=== PATIENT | female | born 1985 | race Caucasian/White ===

== ENCOUNTER 2019-08-06 05:00 | Inpatient (IN) | payer MEDICAID, SELFPAY ==
[2019-08-06] VITALS (19 sets, daily range): BP systolic 106–133; BP diastolic 54–97; PULSE 64–96; RESP 14–19; TEMP 36.6–37.7; O2SAT 95–99; BMI 36.9
[2019-08-06] MEDS: Lactated Ringers 1,000 ML 999 ML IV (05:55)
[2019-08-06 06:08] LABS: Absolute Lymphocyte Count 1.69 X10^3/uL (0.83-4.51); Absolute Neutrophil Count 6.7 X10^3/uL (2.0-7.7); Basophil# 0.02 X10^3/uL; Basophil% 0.2 % (0-1); Eosinophil# 0.06 X10^3/uL; Eosinophils% 0.7 % (0-5); Hematocrit 35.8 % (37-47); Hemoglobin 11.9 g/dL (12.0-15.0); Lymphocyte # 1.69 X10^3/ul (4.0); Lymphocyte % 18.7 % (19-41); Mean Corp Hgb Conc 33.2 g/dL (32-36); Mean Corpuscular Hgb 30.3 pg (27.0-32.0); Mean Corpuscular Volume 91.1 fL (81-99); Mean Platelet Vol. 12.9 fl (6.2-12.0); Monocyte% 5.5 % (0-10); NRBC Flagged by Analyzer 0 % (0-5); Neutrophil # 6.69 X10^3/uL (2.7-7.7); Neutrophil % 74.1 % (47-70); Platelet Count 117 K/mm3 (150-450); RBC Distribution Width CV 13.2 % (11.6-14.6); RBC Distribution Width SD 43.6 fl (35.1-43.9); Red Blood Count 3.93 M/mm3 (4.2-5.4)
[2019-08-06] MEDS: Lactated Ringers 1,000 ML 150 ML IV (07:00)
[2019-08-06] MEDS: Sodium Citrate/Citric Acid 30 ML UDC PO (07:08)
[2019-08-06] MEDS: Cefazolin 2 GM in 0.9% Normal Saline 100 ML IV (07:26)
--- NOTE | 2019-08-06 07:42 | PCM.HP.BLA ---
History and Physical Date of Admission: 08/06/19 Pre-Op History and Physical ? HPI: The patient is a 34 year old female presenting for pre-operative visit. She is scheduled for? section with bilateral salpingectomy or tubal sterilization, for?history of previous section and sterilization on?08/06/19. ??Procedure discussed along with risks, benefits and complications. ?Other alternatives discussed for management. Consent form signed??Yes.? PAST MEDICAL HISTORY PAST MEDICAL HISTORY Diagnosis Date ? Hypertension ? ? ? PAST SURGICAL HISTORY PAST SURGICAL HISTORY Procedure Laterality Date ? SECTION HX ? 2017 ? TOOTH EXTRACTION ? 2004 ? wisdom teeth removed ? ? CURRENT MEDICATIONS Current Outpatient Medications Medication Sig Dispense Refill ? Breast Pump Use as directed 1 Each 0 ? aspirin, enteric coated (ASPIRIN, ENTERIC COATED) 81 mg EC tablet Take 1 tablet by mouth once daily. 30 tablet 6 ? no122/iron/folic acid ( MULTI ORAL) Take by mouth once daily. ? ? ? Kckzqidn-Pb-Rbr-Fe-FA tab Take 1 tablet by mouth once daily. 30 tablet 5 ? No current facility-administered medications for this visit.? ? ALLERGIES:?Patient has no known allergies. ? PERSONAL HISTORY:? SOCIAL HISTORY Social History ? Tobacco Use ? Smoking status: Former Smoker ? ? Years: 5.00 ? ? Last attempt to quit: 03/27/2015 ? ? Years since quittin.3 ? Smokeless tobacco: Never Used Substance Use Topics ? Alcohol use: No ? Drug use: No ? FAMILY HISTORY:? FAMILY HISTORY FAMILY HISTORY Problem Relation Age of Onset ? Cancer Paternal Grandfather ? ? Cancer Father ? ? Hypertension Father ? ? Cancer Mother ? ? Hypertension Mother ? ? No Known Problems Sister ? ? Cancer Maternal Grandfather ?Lung ? Cancer Paternal Grandmother ? ? No Known Problems Sister ? ? No Known Problems Daughter ? ? No Known Problems Son ? ? No Known Problems Son ? ? REVIEW OF SYMPTOMS: GENERAL: denies fevers or chills ENDOCRINOLOGY: has not been on steroids Cardiology : denies palpitations or chest pain Respiratory: denies SOB or cough Hematology: denies history of prolonged bleeding or easy bruising or VTE Allergy: Denies history of personal or family history of allergy to anesthesia ? ? PHYSICAL EXAMINATION: ? VITALS:?Last menstrual period 11/06/2018, unknown if currently . ? GENERAL:??The patient is well nourished, well hydrated in no acute distress. ?, The patient is oriented to time, place, and person. NECK:?Supple. No lynphadenopathy, normal thyroid, no thyromegaly. LUNGS:?Clear to auscultation bilaterally. no wheezes, rhonchi or rales HEART:?Regular rate and rhythm, Normal heart sounds and No murmurs or gallops Abdomen: Soft nontender, gravid, appropriate for gestational age ? IMPRESSION:?34-year-old 4 para 3 with history of previous section, desires repeat, and sterilization request.??EDC 08/13/19. ? PLAN:???The risks/benefits/alternatives and personal involved for the planned? section and bilateral salpingectomy or tubal sterilization?were reviewed with the patient. Her questions were answered to her satisfaction and she desires to proceed. ?Consent was signed. ?I reviewed with her postop instructions and expectations. ? ? I have reviewed and updated past medical and surgical history, medications and allergies?
--- NOTE | 2019-08-06 07:55 | FALS_PTH ---
PATIENT: JAZMIN TOLBERT LOC: [facility] U#:[id number] AGE/SX: 34/F ROOM: WP004 RE08/06/[address]: Dr. Henna Roberts MD : [id number] BED: 1 DIS: 08/08/2019 SPEC #: [id number] RECD: 08/06/19 10:24 STATUS: GIOVANNI JULIANA #: [id number] ANA MARÍA: 08/06/19 07:[address]: Henna Roberts DEPT: SURGICAL PATHOLOGY RECD BY: [place] ENTERED: 08/06/19 12:37 SP TYPE: FALL TUBES OTHR DR: No Primary Care Phys Tissues: Fallopian tube Procedures: Surgery Specimen Level II Surgery Specimen Level III HEADER OPERATION: Tubal ligation PRE-OP DIAGNOSIS: Sterilization TISSUE SUBMITTED: Fallopian tubes, suture in right tube MICROSCOPIC DIAGNOSIS Right and left fallopian tubes, salpingectomies: Benign paratubal cysts. Complete cross-sections of fallopian tubes. AM:cristy 08/07/19 MICROSCOPIC DESCRIPTION Slides are reviewed. GROSS DESCRIPTION Received is one container labeled with the patient's name and designated bilateral fallopian tubes, stitch in right. The specimen consists of bilateral fallopian tubes including fimbrial ends. The right tube measures 6 cm in length and 0.6 cm in diameter and left tube measures 6 cm in length and 0.5 cm in diameter. Sections do not reveal any mass lesion. Sections reveal unremarkable cut surfaces. 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 / SJ:cristy 08/06/19 TC:5 CPT: 39655, 88481
[2019-08-06] MEDS: Oxytocin 30 units/NS 500 ml 30 UNITS/500 ML IV.SOLN 167 UNITS IV (08:00)
[2019-08-06] MEDS: Ondansetron 4 MG/2 ML Vial IV (08:00)
--- NOTE | 2019-08-06 08:28 | PCM.OPRPT ---
Delivery Classification: Scheduled Final SHILPA: 08/13/19 Final SHILPA Source: US <20 weeks Gestational age: 39 Weeks and 0 Days security systems administrator: Jaimie Quintanilla Type of Anesthesia:: Spinal Special Medications: none Implants Used: none Date of Procedure: 08/06/19 Pre-Operative Diagnosis: 39 week , previous c/s, desires sterilization Post-Operative Diagnosis: same Indications for : Repeat Elective , Desires elective sterilization Description of Procedure: The patient was taken to the operating room. She was prepped and draped in the dorsal supine position with a leftward tilt. A Pfannenstiel skin incision was made approximately 2 cm above the symphysis pubis and carried through to underlying layer fascia with the scalpel. The fascia was incised incised in the midline and extended laterally with the Mancera scissors. The fascia was dissected off the rectus muscles with blunt and sharp dissection. The rectus muscles were in the midline and the peritoneum was entered bluntly. The peritoneal incision was stretched and the bladder blade was placed. The uterine incision was made in a low transverse fashion with the scalpel and extended superiorly and inferiorly with blunt dissection. The amniotic membranes were ruptured bluntly and clear amniotic fluid returned. The 's head was brought to the incision in the flexed position and delivered without difficulty. The remainder of the infant was delivered with gentle traction and fundal pressure in the standard fashion. The mouth and nares were bulb suctioned. The cord was clamped and cut as the infant was stimulated. Cord clamping was delayed. The was handed off to the waiting nursing staff. The placenta was delivered with fundal massage and gentle traction in the standard fashion. The uterus was exteriorized and cleared of all clots and debris. The cervix was dilated with a ring forcep. The uterine incision was closed with #1 Vicryl in a running locked fashion. The incision was examined and was found to be hemostatic. The uterus was placed back into the peritoneal cavity and hemostasis was again confirmed. The right fallopian tube was identified and grasped with a Yuki clamp and held up. The LigaSure device was used to clamp, seal and transect the antimesenteric portion of the tube to the cornual insertion of the tube. The tube was clamped across with the LigaSure, sealed and transected with the LigaSure device. Hemostasis of the pedicles was noted. The same procedure was performed on the contralateral side. The uterine incision was again examined and found to be hemostatic. The rectus muscles were examined and any bleeding was Bovie cauterized. The parietal peritoneum and rectus muscles were closed en bloc with an 0 Vicryl running suture. The surgical teams outer gloves were then changed. The rectus fascia was examined and any bleeding was Bovie cauterized and the rectus fascia was closed with 0 PDS suture in a running standard fashion. The subcutaneous tissue was examining and any bleeding was Bovie cauterized. The subcutaneous tissue was reapproximated with 3-0 Vicryl suture. The skin was closed in a subcuticular fashion by the ENROLLED NURSE with me present in the labor and delivery suite. I performed the remainder of the procedure with assistance. All sponge, lap, and needle counts were correct. The patient was taken to her room for recovery in a stable condition. Amniotic Membrane Rupture Type: Artificial Amniotic Fluid Description: Clear Placenta Disposition: [facility] Specimen(s) sent to pathology: Bilateral fallopian tubes Drain: Mccullough to straight drain Fluids Replaced: 1000 Cord Entanglement: None Cord Vessel Description: 3 Vessels Esitmated Blood Loss (ml): 600 Infant Gender: Male Delayed cord clamping: Yes Antibiotic Given: Ancef 2 grams IV x1 Complications: None - Admit VTE Documentation VTE Present on Admission: No VTE Pharm Prophylaxis ordered?: Yes Reason prophylaxis not ordered:: Treatment Not Indicated
[2019-08-06] MEDS: Methylergonovine 0.2 MG/ML Ampul IM (09:42)
[2019-08-06] MEDS: Lactated Ringers 1,000 ML 100 ML IV (10:37)
[2019-08-06] MEDS: Acetaminophen 500 MG Tablet 1000 MG PO (11:48)
[2019-08-06] MEDS: Ketorolac 30 MG/ML Syringe IV ×2 (13:22→20:03)
[2019-08-06] MEDS: 0.9% Saline Lock 10 ML Syringe IV (20:03)
[2019-08-07 00:48] VITALS: BP 121/75; PULSE 59; RESP 16; TEMP 37.1; O2SAT 95
[2019-08-07] MEDS: 0.9% Saline Lock 10 ML Syringe IV ×4 (02:17→19:44)
[2019-08-07] MEDS: Ketorolac 30 MG/ML Syringe IV ×4 (02:18→19:43)
[2019-08-07 03:48] VITALS: BP 123/67; PULSE 59; RESP 16; TEMP 37.1; O2SAT 94
[2019-08-07 04:09] LABS: Hematocrit 30.3 % (37-47); Hemoglobin 10.2 g/dL (12.0-15.0); Mean Corp Hgb Conc 33.7 g/dL (32-36); Mean Corpuscular Hgb 30.9 pg (27.0-32.0); Mean Corpuscular Volume 91.8 fL (81-99); Platelet Count 107 K/mm3 (150-450); RBC Distribution Width CV 13.2 % (11.6-14.6); RBC Distribution Width SD 43.9 fl (35.1-43.9); White Blood Count 9.3 K/mm3 (4.4-11.0)
--- NOTE | 2019-08-07 05:30 | NURSING ---
Report received from Lay TIMMONS, taking over pt and care at this time.
[2019-08-07 08:45] VITALS: BP 126/81; PULSE 68; RESP 14; TEMP 36.7; O2SAT 98
[2019-08-07 13:56] VITALS: BP 129/81; PULSE 79; RESP 12; TEMP 36.8
[2019-08-07 13:57] LABS: Pathology Specimen OB SEE PATHOLOGY REPORT
--- NOTE | 2019-08-07 15:36 | PCM.PN.OB ---
Subjective: Pain well controlled. Average lochia. Tolerating regular diet. Has been up to urinate. - Physical Exam Vitals/I&O's: Vital Signs Temp Pulse Resp BP Pulse Ox 98.3 F 79 12 129/81 H 98 08/07/19 13:56 08/07/19 13:56 08/07/19 13:56 08/07/19 13:56 08/07/19 08:45 Oxygen Delivery Method Room Air Weight: 97.704 kg Body Mass Index (BMI) 36.9 Intake and Output for Last 24 Hours 08/05/19 08/06/19 08/07/19 23:59 23:59 23:59 Intake Total 2530.31 / 2530.31 Output Total 2180 / 2180 600 / 600 Balance 350.31 / 350.31 -600 / -600 General: Alert, Cooperative, No apparent distress Abdomen: Soft, Distended - Mildly, softly, Tender - Appropriately Skin: Incision - Bandage is clean dry and intact Laboratory Results 08/07/19 03:55: WBC 9.3, RBC 3.30 L, Hgb 10.2 L, Hct 30.3 L, MCV 91.8, MCH 30.9, MCHC 33.7, RDW Std Deviation 43.9, RDW Coeff of Jeff 13.2, Plt Count 107 L, MPV 13.0 H Current Medications Acetaminophen (Tylenol) 1,000 mg PO Q8H PRN PRN Reason: Pain Score 1-3/10 Last Admin: 08/06/19 11:48 Dose: 1,000 mg Documented by: Bisacodyl (Dulcolax) 10 mg RECTAL UD PRN PRN Reason: If no BM Hydrocortisone (Hytone) 1 applic TOPICAL TID PRN PRN; Protocol PRN Reason: Discomfort Naloxone HCl 4 mg/ Dextrose 504 mls @ 0 mls/hr IV .Q0M PRN; Protocol PRN Reason: Respiratory depression Ketorolac Tromethamine (Toradol (Bkc)) 30 mg IV Q6H BEKA Stop: 08/08/19 08:01 Last Admin: 08/07/19 13:57 Dose: 30 mg Documented by: Methylergonovine Maleate (Methergine) 0.2 mg IM X1 PRN PRN Reason: Uterine Atony Last Admin: 08/06/19 09:42 Dose: 0.2 mg Documented by: Naloxone HCl (Narcan) 0.02 mg IV Q1M PRN PRN Reason: RR <10 and pt unresponsive Naproxen (Naprosyn) 250 - 500 mg PO Q8H PRN PRN PRN Reason: Pain Score 1-3/10 Ondansetron HCl (Zofran) 4 mg IV Q4H PRN PRN PRN Reason: Nausea Last Admin: 08/06/19 08:00 Dose: 4 mg Documented by: Oxycodone HCl (Oxyir) 5 - 10 mg PO Q4H PRN PRN PRN Reason: Pain Score 4-10/10 Prochlorperazine Edisylate (Compazine Iv) 10 mg IV Q6H PRN PRN PRN Reason: NAUSEA Senna/Docusate Sodium (Senokot-S, Yumiko-Colace) 0 tablet PO DAILY PRN PRN Reason: Constipation Simethicone (Mylicon) 80 mg PO PCHS PRN PRN Reason: Indigestion/stomach pain Last Admin: 08/07/19 01:05 Dose: 80 mg Documented by: Sodium Chloride () 5 - 15 ml IV UD PRN PRN Reason: SALINE FLUSH Last Admin: 08/07/19 13:57 Dose: 10 ml Documented by: Medical Necessity - Tobacco Use Smoking Status: Former smoker Assessment/Plan Postoperative day #1 status post repeat section and bilateral salpingectomy Patient is doing well. Routine care. Will discharge home tomorrow.
[2019-08-07 19:40] VITALS: BP 135/76; PULSE 77; RESP 16; TEMP 36.5; O2SAT 96
[2019-08-08 02:20] VITALS: BP 123/74; PULSE 66; RESP 16; TEMP 36.4; O2SAT 96
[2019-08-08] MEDS: Ketorolac 30 MG/ML Syringe IV ×2 (02:22→07:37)
[2019-08-08] MEDS: 0.9% Saline Lock 10 ML Syringe IV ×2 (02:23→07:38)
[2019-08-08 07:35] VITALS: BP 122/74; PULSE 64; RESP 16; TEMP 36.7; O2SAT 99
[2019-08-08] MEDS: Senna/Docusate Sodium 1 Tablet PO (07:42)
--- NOTE | 2019-08-08 08:32 | PCM.PN.OB ---
Subjective: pain well controlled, average lochia. + flatus, no Bm. desires d/c home - Physical Exam Vitals/I&O's: Vital Signs Temp Pulse Resp BP Pulse Ox 98.1 F 64 16 122/74 H 99 08/08/19 07:35 08/08/19 07:35 08/08/19 07:35 08/08/19 07:35 08/08/19 07:35 Oxygen Delivery Method Room Air Weight: 97.704 kg Body Mass Index (BMI) 36.9 Intake and Output for Last 24 Hours 08/06/19 08/07/19 08/08/19 23:59 23:59 23:59 Intake Total 2530.31 / 2530.31 Output Total 2180 / 2180 600 / 600 Balance 350.31 / 350.31 -600 / -600 General: Alert, Cooperative, No apparent distress Abdomen: Soft, Distended - mildly, softly, Tender - appropriately Extremities: Edema - 1+ Skin: Incision - bandage clean, dry and intact. there is some contact dermatitis rash on skin superior to incision and above and under bandage. no calor, no evidence of infection Current Medications Acetaminophen (Tylenol) 1,000 mg PO Q8H PRN PRN Reason: Pain Score 1-3/10 Last Admin: 08/06/19 11:48 Dose: 1,000 mg Documented by: Bisacodyl (Dulcolax) 10 mg RECTAL UD PRN PRN Reason: If no BM Hydrocortisone (Hytone) 1 applic TOPICAL TID PRN PRN; Protocol PRN Reason: Discomfort Naloxone HCl 4 mg/ Dextrose 504 mls @ 0 mls/hr IV .Q0M PRN; Protocol PRN Reason: Respiratory depression Methylergonovine Maleate (Methergine) 0.2 mg IM X1 PRN PRN Reason: Uterine Atony Last Admin: 08/06/19 09:42 Dose: 0.2 mg Documented by: Naloxone HCl (Narcan) 0.02 mg IV Q1M PRN PRN Reason: RR <10 and pt unresponsive Naproxen (Naprosyn) 250 - 500 mg PO Q8H PRN PRN PRN Reason: Pain Score 1-3/10 Ondansetron HCl (Zofran) 4 mg IV Q4H PRN PRN PRN Reason: Nausea Last Admin: 08/06/19 08:00 Dose: 4 mg Documented by: Oxycodone HCl (Oxyir) 5 - 10 mg PO Q4H PRN PRN PRN Reason: Pain Score 4-10/10 Prochlorperazine Edisylate (Compazine Iv) 10 mg IV Q6H PRN PRN PRN Reason: NAUSEA Senna/Docusate Sodium (Senokot-S, Yumiko-Colace) 0 tablet PO DAILY PRN PRN Reason: Constipation Last Admin: 08/08/19 07:42 Dose: 2 tablet Documented by: Simethicone (Mylicon) 80 mg PO PCHS PRN PRN Reason: Indigestion/stomach pain Last Admin: 08/07/19 01:05 Dose: 80 mg Documented by: Sodium Chloride () 5 - 15 ml IV UD PRN PRN Reason: SALINE FLUSH Last Admin: 08/08/19 07:38 Dose: 10 ml Documented by: Medical Necessity - Tobacco Use Smoking Status: Former smoker Assessment/Plan POD#2 doing well ready for d/c doing well hydrocortisone for rash, contact dermatitis, it is not in the exact distribution of the bandage, so I do not think it is a reaction to the tape. However, if it seems to get worse instructed her to take the bandage off befor postop day 5. She agrees w/ plan
--- NOTE | 2019-08-08 08:33 | PCM.DCCSEC ---
Discharge Diet: No Restrictions Discharge Activity: Return to Normal Activity, May Not Drive - for 2 weeks, May not drive while taking narcotic pain medications., May Shower, May Take a Tub Bath - in 7 days. May resume sexual activity in: 4-6 weeks Lifting Restrictions: 20 pounds Additional Activity Instructions:: Nothing in the vagina for 4-6 weeks. You may return to work/school in 6 weeks. Call your doctor if your incision/area has: Continuous Slow Oozing, Sudden Increased Bleeding, Increased Pain/ Swelling, Increased Redness, Foul Smelling Discharge Call your doctor if you observe: Fever of 101 or Higher, Using more than one pad per hour - for 2 hours Suture Line Care: Avoid Pulling/Pushing, Avoid Pinching/Bending Cleanse incision/area with: Keep Dressing Clean & Dry Additional Instructions: If you experience any of the following, contact your healthcare provider. Bleeding that soaks a pad every hour for 2 hours Fever 100.4 or higher Unrelieved incision or abdominal pain Swelling, redness, discharge or bleeding from your incision or episiotomy site Your incision begins to separate Problems urinating (including inability to urinate or burning while urinating). Visual changes Severe headache Flu-like symptoms Pain or redness in one of both of your breasts Pain, warmth, tenderness or swelling in your legs, especially the calf area Frequent nausea and vomiting Symptoms of depression or anxiety If you experience any of the following, call 911 or go to the nearest Emergency Room. Chest pain Problems breathing Seizure activity Partial or complete paralysis of a body part, slurred speech, weakness or drooping of the face, or a sudden inability to walk or hold your balance Allergies/Adverse Reactions: Allergies No Known Allergies Allergy (Verified 08/06/19 06:21) Medications to take at Discharge Prenatabs FA 1 tab PO DAILY 08/06/19 Acetaminophen [Tylenol] 1,000 mg PO Q8H PRN #60 tab 08/08/19 Naproxen [Naprosyn] 250 - 500 mg PO Q8H PRN PRN #60 tab 08/08/19 Oxycodone [Oxyir] 5 - 10 mg PO Q4H PRN PRN 7 Days #20 tablet 08/08/19 Senna/Docusate Sodium [Senokot-S] 1 tab PO DAILY PRN #20 tab 08/08/19 SimETHICONE [Mylicon] 80 mg PO PCHS PRN #20 tab 08/08/19 The following prescriptions were given: SimETHICONE [Mylicon] 80 mg PO PCHS PRN #20 tab PRN Reason: Indigestion/stomach pain Transmission Status: Pending to [facility] Naproxen [Naprosyn] 250 - 500 mg PO Q8H PRN PRN #60 tab PRN Reason: Pain Score 1-3/10 Transmission Status: Pending to [facility] Oxycodone [Oxyir] 5 - 10 mg PO Q4H PRN PRN 7 Days #20 tablet PRN Reason: Pain Score 4-10/10 Transmission Status: Sent to [facility] Senna/Docusate Sodium [Senokot-S] 1 tab PO DAILY PRN #20 tab PRN Reason: Constipation Transmission Status: Pending to [facility] Acetaminophen [Tylenol] 1,000 mg PO Q8H PRN #60 tab PRN Reason: Pain Score 1-3/10 Transmission Status: Pending to [facility] Follow-Up: Call to make an appointment with your doctor for an incision check in 1-2 weeks. You will also need a 6 week post- follow up appointment. Test results from this visit will be discussed in further detail at your follow-up appointment, if applicable. Please Follow Up With: Henna Roberts MD - Call to make an appointment for an incision check in 1-2 [phone] When: You will need a post- check in 6 weeks. Primary Care Physician: Care Physician,No Primary [Primary Care Provider] -
--- NOTE | 2019-08-08 08:35 | DS.PCM_ITS ---
Discharge Date and Diagnosis Date of Admission: 08/06/19 Date of Discharge: 08/08/19 Hospital Course and Treatment Operations: - - Repeat low transverse section via Pfannenstiel skin incision with bilateral salpingectomy Procedures: None Summary of Care Provided: The patient is a 34 year old female with history of 2 previous sections presented at 39 weeks for repeat section. This was performed without difficulty. She had a bilateral salpingectomy for sterilization. Mild acute blood loss anemia was appropriate for blood loss during surgery. She had mild gestational thrombocytopenia. By postoperative day #2 she was ambulating, urinating tolerating regular diet without difficulty and she was discharged home with routine instructions and prescriptions. [] - Physical Exam Vitals/I&O's: Vital Signs Temp Pulse Resp BP Pulse Ox 98.1 F 64 16 122/74 H 99 08/08/19 07:35 08/08/19 07:35 08/08/19 07:35 08/08/19 07:35 08/08/19 07:35 Oxygen Delivery Method Room Air Weight: 97.704 kg Body Mass Index (BMI) 36.9 Intake and Output for Last 24 Hours 08/06/19 08/07/19 08/08/19 23:59 23:59 23:59 Intake Total 2530.31 / 2530.31 Output Total 2180 / 2180 600 / 600 Balance 350.31 / 350.31 -600 / -600 Current Medications Acetaminophen (Tylenol) 1,000 mg PO Q8H PRN PRN Reason: Pain Score 1-3/10 Last Admin: 08/06/19 11:48 Dose: 1,000 mg Documented by: Bisacodyl (Dulcolax) 10 mg RECTAL UD PRN PRN Reason: If no BM Hydrocortisone (Hytone) 1 applic TOPICAL TID PRN PRN; Protocol PRN Reason: Discomfort Naloxone HCl 4 mg/ Dextrose 504 mls @ 0 mls/hr IV .Q0M PRN; Protocol PRN Reason: Respiratory depression Methylergonovine Maleate (Methergine) 0.2 mg IM X1 PRN PRN Reason: Uterine Atony Last Admin: 08/06/19 09:42 Dose: 0.2 mg Documented by: Naloxone HCl (Narcan) 0.02 mg IV Q1M PRN PRN Reason: RR <10 and pt unresponsive Naproxen (Naprosyn) 250 - 500 mg PO Q8H PRN PRN PRN Reason: Pain Score 1-3/10 Ondansetron HCl (Zofran) 4 mg IV Q4H PRN PRN PRN Reason: Nausea Last Admin: 08/06/19 08:00 Dose: 4 mg Documented by: Oxycodone HCl (Oxyir) 5 - 10 mg PO Q4H PRN PRN PRN Reason: Pain Score 4-10/10 Prochlorperazine Edisylate (Compazine Iv) 10 mg IV Q6H PRN PRN PRN Reason: NAUSEA Senna/Docusate Sodium (Senokot-S, Yumiko-Colace) 0 tablet PO DAILY PRN PRN Reason: Constipation Last Admin: 08/08/19 07:42 Dose: 2 tablet Documented by: Simethicone (Mylicon) 80 mg PO PCHS PRN PRN Reason: Indigestion/stomach pain Last Admin: 08/07/19 01:05 Dose: 80 mg Documented by: Sodium Chloride () 5 - 15 ml IV UD PRN PRN Reason: SALINE FLUSH Last Admin: 08/08/19 07:38 Dose: 10 ml Documented by: Discharge Diet: No Restrictions Discharge Activity: Return to Normal Activity, May Not Drive - for 2 weeks, May not drive while taking narcotic pain medications., May Shower, May Take a Tub Bath - in 7 days. May resume sexual activity in: 4-6 weeks Additional Activity Instructions:: Nothing in the vagina for 4-6 weeks. You may return to work/school in 6 weeks. Call your doctor if your incision/area has: Continuous Slow Oozing, Sudden Increased Bleeding, Increased Pain/ Swelling, Increased Redness, Foul Smelling Discharge Call your doctor if you observe: Fever of 101 or Higher, Using more than one pad per hour - for 2 hours Suture Line Care: Avoid Pulling/Pushing, Avoid Pinching/Bending Cleanse incision/area with: Keep Dressing Clean & Dry Home Medications: Medications to take at Discharge Prenatabs FA 1 tab PO DAILY 08/06/19 Acetaminophen [Tylenol] 1,000 mg PO Q8H PRN #60 tab 08/08/19 Naproxen [Naprosyn] 250 - 500 mg PO Q8H PRN PRN #60 tab 08/08/19 Oxycodone [Oxyir] 5 - 10 mg PO Q4H PRN PRN 7 Days #20 tab 08/08/19 Senna/Docusate Sodium [Senokot-S] 1 tab PO DAILY PRN #20 tab 08/08/19 SimETHICONE [Mylicon] 80 mg PO PCHS PRN #20 tab 08/08/19 Following Prescrptions Were Given to Patient: SimETHICONE [Mylicon] 80 mg PO PCHS PRN #20 tab PRN Reason: Indigestion/stomach pain Transmission Status: Sent to [facility] Naproxen [Naprosyn] 250 - 500 mg PO Q8H PRN PRN #60 tab PRN Reason: Pain Score 1-3/10 Transmission Status: Sent to [facility] Oxycodone [Oxyir] 5 - 10 mg PO Q4H PRN PRN 7 Days #20 tab PRN Reason: Pain Score 4-10/10 Transmission Status: Sent to [facility] Senna/Docusate Sodium [Senokot-S] 1 tab PO DAILY PRN #20 tab PRN Reason: Constipation Transmission Status: Sent to [facility] Acetaminophen [Tylenol] 1,000 mg PO Q8H PRN #60 tab PRN Reason: Pain Score 1-3/10 Transmission Status: Sent to [facility] Primary Care Physician: Care Physician,No Primary [Primary Care Provider] - Please Follow Up With: Henna Roberts MD - Call to make an appointment for an incision check in 1-2 [phone] When: You will need a post- check in 6 weeks. Medical Necessity - Tobacco Use Smoking Status: Former smoker Meaningful Use Info Meaningful Use Diagnoses (Choose all that apply): None applicable
[2019-08-08 12:00] VITALS: BP 112/74; PULSE 70; RESP 16; TEMP 36.7
== END 2019-08-08 12:10 | disposition home or self-care (01) | DRG 539 ==
PROVIDERS: Admitting Provider Obstetrics & Gynecology; Referring Provider Obstetrics & Gynecology; Visit Provider Obstetrics & Gynecology
PROC: 10D00Z1 Extraction of Products of Conception, Low, Open Approach (ICD-10-PCS; CPT 59514; principal; 2019-08-06 07:15)
DX: O34.211 Maternal care for low transverse scar from previous cesarean delivery (principal); O16.3 Unspecified maternal hypertension, third trimester; D62 Acute posthemorrhagic anemia; O99.73 Diseases of the skin and subcutaneous tissue complicating the puerperium; L25.9 Unspecified contact dermatitis, unspecified cause; O72.3 Postpartum coagulation defects; D69.6 Thrombocytopenia, unspecified; Z3A.39 39 weeks gestation of pregnancy; Z37.0 Single live birth; Z30.2 Encounter for sterilization; Z79.82 Long term (current) use of aspirin; Z87.891 Personal history of nicotine dependence
CPT/HCPCS: 85025; 85027; 86850; 86900; 86901; 88302; 88304; 99218; 99251; J7120; A4216; G0378; G0463; J2405